=== PATIENT | male | born 1970 | race Caucasian/White ===

== ENCOUNTER 2019-02-26 13:16 | Emergency (ER) | payer SELFPAY ==
[2019-02-26] MEDS ORDERED: LIDOCAINE VISCOUS 2% SOLN 15 ML UDC ONE (14:06)
[2019-02-26] MEDS ORDERED: predniSONE 20 MG TAB ONE (14:06)
[2019-02-26] MEDS ORDERED: ACETAMINOPHEN 500 MG TAB ONE (14:06)
--- NOTE | 2019-02-26 14:28 | ER ---
Nurse's Notes [facility] Name: Eugene Tavera Age: 48 yrs Sex: Male : 1970 Arrival Date: 02/26/2019 Time: 13:16 Bed 13 Private MD: Diagnosis: Zoster without complications Presentation: 02/26 13:20 Presenting complaint: Patient states: this rash started 2 days ago, on my head and tw2 neck, i had a bout with syphilis about 3 months ago and i went to my doctor and had blood work done and i got the treatment and have been good for a while, a few weeks ago i felt it coming on and my friend told me he got it, so about 2 weeks ago i went to the doctor and got another shot, the rash on the front of my neck started yesterday and up the left side of my neck and i am started to get some on my back and shoulder. Transition of care: patient was not received from another setting of care. Onset of symptoms was February 26, 2019. Risk Assessment: Do you want to hurt yourself or someone else? Patient reports no desire to harm self or others. Initial Sepsis Screen: Does the patient meet any 2 criteria? No. Patient's initial sepsis screen is negative. Does the patient have a suspected source of infection? No. Patient's initial sepsis screen is negative. Care prior to arrival: None. 13:20 Method Of Arrival: Ambulatory tw2 13:20 Acuity: SHEILA 3 tw2 Triage Assessment: 13:25 General: Appears in no apparent distress. slender, Behavior is calm, cooperative, tw2 appropriate for age. Pain: Complains of pain in neck, scalp and back. Historical: - Allergies: 13:25 No Known Allergies; tw2 - Home Meds: 13:25 Tivicay 50 mg oral tab 1 tab once daily [Active]; norvair [Active]; Prezista oral oral tw2 [Active]; - PMHx: 13:25 HIV; tw2 - PSHx: 13:25 Appendectomy; tw2 - Immunization history:: Adult Immunizations Last tetanus immunization: < 5 years ago. - Social history:: Smoking status: Patient uses tobacco products, smokes one pack cigarettes per day. Patient uses street drugs, Methamphetamine (Meth) "i used sometime last week". - Ebola Screening: : Patient denies travel to an Ebola-affected area in the 21 days before illness onset. - Family history:: not pertinent. - Hospitalizations: : No recent hospitalization is reported. Screenin:19 Abuse screen: Denies threats or abuse. Nutritional screening: No deficits noted. tw2 Tuberculosis screening: No symptoms or risk factors identified. Fall Risk None identified. Assessment: 14:00 General: Appears in no apparent distress. uncomfortable, Behavior is calm, cooperative. rv 14:00 Pain: Complains of pain in back of the head down to the neck, left side. Neuro: Level rv of Consciousness is awake, alert, obeys commands, Oriented to person, place, time, situation. Cardiovascular: Patient's skin is warm and dry. Respiratory: Airway is patent. GI: No signs and/or symptoms were reported involving the gastrointestinal system. : No signs and/or symptoms were reported regarding the genitourinary system. EENT: No signs and/or symptoms were reported regarding the EENT system. Derm: Rash noted that is vesicular. Musculoskeletal: No signs and/or symptoms reported regarding the musculoskeletal system. Vital Signs: 13:19 Weight 74.84 kg (R); Height 5 ft. 6 in. (167.64 cm); tw2 13:23 BP 126 / 82; Pulse 112; Resp 18; Temp 100.3(TE); Pulse Ox 100% on R/A; Pain 6/10; tw2 14:40 BP 118 / 81; Pulse 104; Resp 18; Temp 99.8; Pulse Ox 100% on R/A; rv 13:19 Body Mass Index 26.63 (74.84 kg, 167.64 cm) tw2 ED Course: 13:16 Patient arrived in ED. am2 13:19 Arm band placed on. tw2 13:23 Triage completed. tw2 13:32 Rei Correa MD is Attending Physician. wa 13:38 Delaney Guidry, RN is Primary Nurse. iw 14:00 Patient has correct armband on for positive identification. Bed in low position. Call rv light in reach. Pulse ox on. NIBP on. 14:42 No provider procedures requiring assistance completed. Patient did not have IV access rv during this emergency room visit. Administered Medications: 14:09 Drug: Tylenol 1000 mg Route: PO; rv 14:41 Follow up: Response: No adverse reaction; Temperature is decreased rv 14:09 Drug: predniSONE 40 mg Route: PO; rv 14:41 Follow up: Response: No adverse reaction rv 14:09 Drug: Viscous Lidocaine Liquid (4 %) 5 ml {Note: back of the head down to the neck, rv left side.} Route: Mucous Membrane; 14:41 Follow up: Response: Pain is decreased rv Outcome: 14:28 Discharge ordered by . nv 14:43 Discharged to home ambulatory. rv 14:43 Condition: good 14:43 Discharge instructions given to patient, Instructed on discharge instructions, follow up and referral plans. medication usage, Demonstrated understanding of instructions, follow-up care, medications, Prescriptions given X 3. 14:44 Patient left the ED. rv Signatures: Delaney Guidry, RN LOLLY iw Christie Green RN RN tw2 Tashia Reilly am2 Rei Correa MD MD wa Vicente, Ronaldo, RN RN rv
--- NOTE | 2019-02-26 14:28 | EDPHYS ---
Physician Documentation [facility] Name: Eugene Tvaera Age: 48 yrs Sex: Male : 1970 Arrival Date: 02/26/2019 Time: 13:16 Bed 13 Private MD: ED Physician Rei Correa HPI: 02/26 14:06 This 48 yrs old Male presents to ER via Ambulatory with complaints of Rash - wa on neck. 14:06 The patient's rash thought to be caused by an unknown cause. The rash is located on the wa L scalp. L lateral neck, and over the L clavicular fossa area. The rash can be described as erythematous, patchy, raised, vesicular. Onset: The symptoms/episode began/occurred 2 day(s) ago. Associated signs and symptoms: Pertinent positives: burning sensation, Pain Pertinent negatives: difficulty breathing, fever, itching. Severity of symptoms: At their worst the symptoms were moderate in the emergency department the symptoms are unchanged. Treatment given at home: none. The patient has experienced a previous episode. The patient has not recently seen a physician. h/o HIV. on HAART. Viral load undetectable. . Historical: - Allergies: 13:25 No Known Allergies; tw2 - Home Meds: 13:25 Tivicay 50 mg oral tab 1 tab once daily [Active]; norvair [Active]; Prezista oral oral tw2 [Active]; - PMHx: 13:25 HIV; tw2 - PSHx: 13:25 Appendectomy; tw2 - Immunization history:: Adult Immunizations Last tetanus immunization: < 5 years ago. - Social history:: Smoking status: Patient uses tobacco products, smokes one pack cigarettes per day. Patient uses street drugs, Methamphetamine (Meth) "i used sometime last week". - Ebola Screening: : Patient denies travel to an Ebola-affected area in the 21 days before illness onset. - Family history:: not pertinent. - Hospitalizations: : No recent hospitalization is reported. ROS: 14:15 Constitutional: Negative for fever, chills, and weight loss, Eyes: Negative for injury, wa pain, redness, and discharge, ENT: Negative for injury, pain, and discharge, Neck: Negative for injury, pain, and swelling, Cardiovascular: Negative for chest pain, palpitations, and edema, Respiratory: Negative for shortness of breath, cough, wheezing, and pleuritic chest pain, Abdomen/GI: Negative for abdominal pain, nausea, vomiting, diarrhea, and constipation, Back: Negative for injury and pain, MS/Extremity: Negative for injury and deformity, Neuro: Negative for headache, weakness, numbness, tingling, and seizure, Psych: Negative for depression, anxiety, suicide ideation, homicidal ideation, and hallucinations. 14:15 Skin: Positive for rash, of the left jehovah's witness, left jaw, left frontal area, left temporal area, left occipital area, left ear and left base of the skull, vesicular, raised. erythematous. tender to touch. Exam: 14:17 Constitutional: This is a well developed, well nourished patient who is awake, alert, wa and in no acute distress. Head/Face: Normocephalic, atraumatic. Eyes: Pupils equal round and reactive to light, extra-ocular motions intact. Lids and lashes normal. Conjunctiva and sclera are non-icteric and not injected. Cornea within normal limits. Periorbital areas with no swelling, redness, or edema. ENT: Nares patent. No nasal discharge, no septal abnormalities noted. Tympanic membranes are normal and external auditory canals are clear. Oropharynx with no redness, swelling, or masses, exudates, or evidence of obstruction, uvula midline. Mucous membranes moist. Neck: Trachea midline, no thyromegaly or masses palpated, and no cervical lymphadenopathy. Supple, full range of motion without nuchal rigidity, or vertebral point tenderness. No Meningismus. Chest/axilla: Normal chest wall appearance and motion. Nontender with no deformity. No lesions are appreciated. Cardiovascular: Regular rate and rhythm with a normal S1 and S2. No gallops, murmurs, or rubs. Normal PMI, no JVD. No pulse deficits. Respiratory: Lungs have equal breath sounds bilaterally, clear to auscultation and percussion. No rales, rhonchi or wheezes noted. No increased work of breathing, no retractions or nasal flaring. Abdomen/GI: Soft, non-tender, with normal bowel sounds. No distension or tympany. No guarding or rebound. No evidence of tenderness throughout. Back: No spinal tenderness. No costovertebral tenderness. Full range of motion. MS/ Extremity: Pulses equal, no cyanosis. Neurovascular intact. Full, normal range of motion. Neuro: Awake and alert, GCS 15, oriented to person, place, time, and situation. Cranial nerves II-XII grossly intact. Motor strength 5/5 in all extremities. Sensory grossly intact. Cerebellar exam normal. Normal gait. Psych: Awake, alert, with orientation to person, place and time. Behavior, mood, and affect are within normal limits. 14:17 Skin: zoster, on the left frontal area, left side of the back of head, left temporal area, left occipital area, left ear, left base of the skull and left mandible. Vital Signs: 13:19 Weight 74.84 kg (R); Height 5 ft. 6 in. (167.64 cm); tw2 13:23 BP 126 / 82; Pulse 112; Resp 18; Temp 100.3(TE); Pulse Ox 100% on R/A; Pain 6/10; tw2 14:40 BP 118 / 81; Pulse 104; Resp 18; Temp 99.8; Pulse Ox 100% on R/A; rv 13:19 Body Mass Index 26.63 (74.84 kg, 167.64 cm) tw2 MDM: 13:32 Patient medically screened. wa 14:19 Differential diagnosis: dermatomal rash consistent with zoster. will treat accordingly. wa see orders and scripts. Data reviewed: vital signs, nurses notes. ED course: lidocaine gel applied to lesions for relief. prednisone. will d/c with acyclovir and advise close f/u. Administered Medications: 14:09 Drug: Tylenol 1000 mg Route: PO; rv 14:41 Follow up: Response: No adverse reaction; Temperature is decreased rv 14:09 Drug: predniSONE 40 mg Route: PO; rv 14:41 Follow up: Response: No adverse reaction rv 14:09 Drug: Viscous Lidocaine Liquid (4 %) 5 ml {Note: back of the head down to the neck, rv left side.} Route: Mucous Membrane; 14:41 Follow up: Response: Pain is decreased rv Disposition: 1719 14:28 Discharged to Home. Impression: Zoster without complications. - Condition is Stable. - Discharge Instructions: Shingles, [id number]. - Prescriptions for Acyclovir 800 mg Oral Tablet - take 1 tablet by ORAL route 5 times per day for 10 days; 50 tablet. Prednisone 20 mg Oral Tablet - take 1 tablet by ORAL route once daily for 5 days; 5 tablet. lidocaine HCl- hydrocortison ac 3-0.5 % Topical cream - apply 1 inch ribbon by TOPICAL route 2 times per day apply to affected area for pain; 1 bottle. - Medication Reconciliation Form, Thank You Letter, Antibiotic Education, Prescription Opioid Use form. - Follow up: Private Physician; When: 2 - 3 days; Reason: Recheck today's complaints. - Problem is new. - Symptoms have improved. - Notes: please take medication as prescribed. see your doctor within 2 days for follow up. Signatures: Christie Green RN RN tw2 Rei Correa MD MD wa Clint Guillen RN RN rv Corrections: (The following items were deleted from the chart) 14:44 14:28 02/26/2019 14:28 Discharged to Home. Impression: Zoster without complications. rv Condition is Stable. Forms are Medication Reconciliation Form, Thank You Letter, Antibiotic Education, Prescription Opioid Use. Follow up: Private Physician; When: 2 - 3 days; Reason: Recheck today's complaints. Problem is new. Symptoms have improved. wa
[2019-02-26] MEDS ORDERED: ACYCLOVIR 400 MG TABLET ONE (14:40)
[2019-02-26 14:52] VITALS: BP 118/81; TEMP 99.8; O2SAT 100
== END 2019-02-26 14:44 | disposition home or self-care (01) ==
LOC: ER 13:16
DX: B02.9 Zoster without complications (principal); Z21 Asymptomatic human immunodeficiency virus [HIV] infection status; F17.210 Nicotine dependence, cigarettes, uncomplicated
CPT/HCPCS: 99283; J7512